=== PATIENT | male | born 1950 | race Caucasian/White ===

== ENCOUNTER 2023-02-25 11:25 | Outpatient (CLI) | payer MEDICARE | END 2023-02-25 11:26 | disposition home or self-care (01) | LOC: RAD 11:25 | PROVIDERS: ATTEND Physician Assistant Medical | DX: K59.00 Constipation, unspecified (principal); R14.0 Abdominal distension (gaseous) | CPT/HCPCS: 36415; 74018; 83516; 84439; 84443 ==